=== PATIENT | female | born 1940 | race Caucasian/White ===

== ENCOUNTER → 2018-01-18 | Outpatient (CLI) | payer MEDICARE, BC ==
[~2018-01-18] VITALS: Ht 182.9 cm; Wt 90.7 kg
[~2018-01-18] MED LIST: ADENOSINE 76 MG in GIVE UN-DILUTED 0 ML IV ONE; ADENOSINE 90 MG/30 ML INJ IV ONE
== END | disposition home or self-care (01) ==
LOC: Rad HDHVI 13:20
PROVIDERS: ATTEND Internal Medicine Cardiovascular Disease
DX: I20.0 Unstable angina (principal); J18.9 Pneumonia, unspecified organism; I10 Essential (primary) hypertension
CPT/HCPCS: 78452; 93005; 96374; 96375; A9500; J0153

== ENCOUNTER → 2020-01-18 | Outpatient (CLI) | payer MEDICARE, BC | END | disposition home or self-care (01) | LOC: Rad HDHVI 12:51 | PROVIDERS: ATTEND Internal Medicine Cardiovascular Disease | DX: I11.9 Hypertensive heart disease without heart failure (principal); I50.33 Acute on chronic diastolic (congestive) heart failure; J44.9 Chronic obstructive pulmonary disease, unspecified | CPT/HCPCS: 93306 ==

== ENCOUNTER → 2020-02-04 | Outpatient (CLI) | payer MEDICARE, BC ==
[~2020-02-04] VITALS: Ht 182.9 cm; Wt 90.7 kg
== END | disposition home or self-care (01) ==
LOC: Rad HDHVI 13:26
PROVIDERS: ATTEND Internal Medicine Cardiovascular Disease
DX: J90 Pleural effusion, not elsewhere classified (principal); R06.02 Shortness of breath; I70.0 Atherosclerosis of aorta
CPT/HCPCS: 78452; 93005; 96374; 96375; A9500; J0153

== ENCOUNTER → 2021-04-14 | Outpatient (CLI) | payer MEDICARE, BC | END | disposition home or self-care (01) | LOC: Rad HDHVI 11:07 | PROVIDERS: ATTEND Internal Medicine Cardiovascular Disease | DX: I10 Essential (primary) hypertension (principal); E78.5 Hyperlipidemia, unspecified | CPT/HCPCS: 93306 ==

== ENCOUNTER → 2021-04-24 | Outpatient (CLI) | payer MEDICARE, BC | END | disposition home or self-care (01) | LOC: Rad HDHVI 10:03 | PROVIDERS: ATTEND Internal Medicine Cardiovascular Disease | DX: I65.23 Occlusion and stenosis of bilateral carotid arteries (principal); I10 Essential (primary) hypertension; E78.5 Hyperlipidemia, unspecified | CPT/HCPCS: 93880 ==

== ENCOUNTER 2021-06-22 09:05 | Day surgery (SDC) | payer MEDICARE, BC ==
[~2021-06-22] VITALS: Ht 182.9 cm; Wt 77.1 kg
[2021-06-22] MEDS ORDERED: LIDOCAINE 2%HCL (LOCAL ANESTH.) INJ 20ML MDV ONE (12:39)
[2021-06-22] MEDS ORDERED: IODIXANOL 320MG/ML 100ML BTL IV ONE ×3 (12:39→15:05)
[2021-06-22] MEDS ORDERED: fentaNYL CITRATE 100 MCG/2 ML VL ONE (12:46)
[2021-06-22] MEDS ORDERED: MIDAZOLAM HCL 2MG/2ML 2ml VIAL (1mg/ml) ONE (12:46)
[2021-06-22] MEDS ORDERED: HEPARIN SODIUM (PORCINE) 5000 UNITS/ML 1ML VIAL ONE (13:33)
[2021-06-22] MEDS ORDERED: PROTAMINE SULFATE 10 MG/ML 5ML VIAL IV ONE (14:10)
== END 2021-06-22 17:40 | disposition home or self-care (01) ==
LOC: CATH 09:05
PROVIDERS: ATTEND Radiology Diagnostic Radiology
DX: M25.122 Fistula, left elbow (principal); Z20.822 Contact with and (suspected) exposure to COVID-19
CPT/HCPCS: 36415; 36905; 76942; 87426; C1725; C1769; C1894; J1644; J2250; J2720; J3010; J7040; J7050; Q9967; 36904; 99152; 99153

== ENCOUNTER 2021-10-14 16:43 | Inpatient (IN) | payer MEDICARE, BC ==
[~2021-10-14] VITALS: Ht 182.9 cm; Wt 86.6 kg
[2021-10-14 18:25] LABS: Basophils # (auto) 0.1 10 ^3/uL (0-0.2); Eosinophils # (auto) 0.2 10 ^3/uL (0-0.8); Hematocrit 31.8 % (36.0-46.0); Hemoglobin 10.6 g/dL (12.2-16.2); Lymphocytes # (auto) 1.3 10 ^3/uL (0.4-5.4); Lymphocytes % (auto) 14.7 % (10.0-50.0); Mean Corpuscular Hemoglobin 31.2 pg (28.0-32.0); Mean Corpuscular Hgb Conc. 33.5 g/dL (32.0-36.0); Mean Corpuscular Volume 93.2 fL (80.0-100.0); Monocytes # (auto) 0.7 10 ^3/uL (0-1.3); Monocytes % (auto) 8.4 % (0.0-12.0); Neutrophils # (auto) 6.5 10 ^3/uL (1.6-8.6); Neutrophils % (auto) 73.9 % (37.0-80.0); Nucleated Red Blood Cells % 0.2 %; Red Blood Cells 3.41 10^6/uL (4.0-5.20); Red Cell Distribution Width 14.8 % (11.8-14.3); White Blood Cell 8.8 10^3/uL (4.4-10.8)
[2021-10-14 18:47] LABS: INR 1.06 (0.9-1.15); Partial Thromboplastin Time 21.7 sec (23.6-33.0)
[2021-10-14 18:48] LABS: Alanine Aminotransferase 35 U/L (13-56); Albumin 3.4 g/dL (3.4-5.0); Anion Gap 11 (5-15); Aspartate Aminotransferase 63 U/L (15-37); BUN/Creatinine Ratio 17.3; Blood Urea Nitrogen 66 mg/dL (7-18); Carbon Dioxide 21 mmol/L (21-32); Chloride 110 mmol/L (98-107); GFR African American 15 mL/min; GFR Non-African American 12 mL/min; Glucose 145 mg/dL (74-106); Potassium 4.7 mmol/L (3.5-5.1); Sodium 142 mmol/L (136-145)
[2021-10-14 18:51] LABS: Alkaline Phosphatase 55 U/L (45-117); Bilirubin, Total 0.7 mg/dL (0.2-1.0); Total Protein 7.3 g/dL (6.4-8.2)
[2021-10-14] MEDS ORDERED: MORPHINE SULFATE 4 MG/ML SYR/VIAL IV ONE (20:00)
[2021-10-14] MEDS ORDERED: ONDANSETRON HCL 4 MG/2 ML VIAL IV ONE (20:00)
[2021-10-14] MEDS: SODIUM CHLORIDE 0.9% 1,000 ML IV SCH (22:27)
[2021-10-14 22:46] LABS: Urine Bacteria FEW /hpf (None Seen); Urine Blood Negative /uL (Negative); Urine Specific Gravity 1.013 (1.001-1.035); Urine WBC 10 /hpf (0 - 5)
[2021-10-14 23:42] VITALS: BP 133/55
[2021-10-15 05:00] VITALS: BP 155/67
[2021-10-15 06:34] LABS: Basophils # (auto) 0 10 ^3/uL (0-0.2); Basophils % (auto) 0.5 % (0.0-2.0); Eosinophils # (auto) 0.3 10 ^3/uL (0-0.8); Eosinophils % (auto) 3.7 % (0.0-7.0); Hematocrit 29.4 % (36.0-46.0); Lymphocytes # (auto) 1.4 10 ^3/uL (0.4-5.4); Lymphocytes % (auto) 18.3 % (10.0-50.0); Mean Corpuscular Hemoglobin 32.8 pg (28.0-32.0); Mean Corpuscular Hgb Conc. 33.9 g/dL (32.0-36.0); Mean Corpuscular Volume 96.9 fL (80.0-100.0); Monocytes # (auto) 0.9 10 ^3/uL (0-1.3); Monocytes % (auto) 11.5 % (0.0-12.0); Neutrophils # (auto) 4.9 10 ^3/uL (1.6-8.6); Nucleated Red Blood Cells % 0.1 %; Red Blood Cells 3.03 10^6/uL (4.0-5.20); Red Cell Distribution Width 15.3 % (11.8-14.3); White Blood Cell 7.5 10^3/uL (4.4-10.8)
[2021-10-15 06:44] LABS: BUN/Creatinine Ratio 18.9; Calcium 8.8 mg/dL (8.5-10.1); Potassium 4.6 mmol/L (3.5-5.1)
[2021-10-15 09:00] VITALS: BP 146/66
[2021-10-15] MEDS ORDERED: cefTRIAXone 1GM/50ML D5W 50 ML IV SCH (09:00)
[2021-10-15] MEDS: ONDANSETRON HCL 4 MG/2 ML VIAL IV PRN ×2 (10:38→19:02)
[2021-10-15] MEDS: SODIUM CHLORIDE 0.9% 1,000 ML IV SCH ×2 (10:38→22:08)
[2021-10-15] MEDS: MORPHINE SULFATE INJECTION 2 MG/ML SYRG IV PRN ×2 (10:45→19:03)
[2021-10-15] MEDS ORDERED: hydrALAZINE HCL 20 MG/ML VL IV PRN (11:15)
[2021-10-15] MEDS ORDERED: ceFAZolin 1GM/50ML 100 ML IV ONE (11:28)
[2021-10-15] MEDS ORDERED: TETRACAINE 1% INJ 2 ML VIAL IJ ONE (11:40)
[2021-10-15] MEDS ORDERED: MIDAZOLAM HCL 2MG/2ML 2ml VIAL (1mg/ml) ONE (11:42)
[2021-10-15] MEDS ORDERED: fentaNYL CITRATE 100 MCG/2 ML VL ONE (11:42)
[2021-10-15] MEDS ORDERED: BUPIVACAINE 0.25% INJ 50ML VIAL ONE (12:25)
[2021-10-15] MEDS ORDERED: ONDANSETRON HCL 4 MG/2 ML VIAL ONE (12:55)
[2021-10-15] MEDS ORDERED: PROPOFOL 10 MG/ML 20 ML IV ONE (12:55)
[2021-10-15] MEDS ORDERED: ONDANSETRON HCL 4 MG/2 ML VIAL IV PRN (13:00)
[2021-10-15] MEDS ORDERED: HYDROmorphone HCL 2 MG/ML VL IV PRN (13:00)
[2021-10-15] MEDS ORDERED: ceFAZolin 2 GM in D5W 5% 100 ML IV SCH (14:00)
[2021-10-15 17:00] VITALS: BP 147/73
[2021-10-15] MEDS: ceFAZolin 2 GM in D5W 5% 100 ML IV SCH (18:50)
[2021-10-15 22:00] VITALS: BP 124/57
[2021-10-15] MEDS: HYDROcodone-ACET 5/325MG TAB PO PRN (22:08)
[2021-10-16] MEDS: ceFAZolin 2 GM in D5W 5% 100 ML IV SCH ×2 (02:53→12:12)
[2021-10-16 04:37] VITALS: BP 122/41
[2021-10-16 06:47] LABS: Basophils # (auto) 0.1 10 ^3/uL (0-0.2); Basophils % (auto) 0.7 % (0.0-2.0); Eosinophils # (auto) 0.3 10 ^3/uL (0-0.8); Eosinophils % (auto) 4.1 % (0.0-7.0); Hematocrit 25.1 % (36.0-46.0); Hemoglobin 8.3 g/dL (12.2-16.2); Lymphocytes % (auto) 14.4 % (10.0-50.0); Mean Corpuscular Hemoglobin 31.2 pg (28.0-32.0); Mean Corpuscular Hgb Conc. 33.2 g/dL (32.0-36.0); Mean Corpuscular Volume 93.7 fL (80.0-100.0); Monocytes # (auto) 0.8 10 ^3/uL (0-1.3); Monocytes % (auto) 10.7 % (0.0-12.0); Neutrophils # (auto) 5.1 10 ^3/uL (1.6-8.6); Neutrophils % (auto) 70.1 % (37.0-80.0); Nucleated Red Blood Cells % 0.2 %; Red Blood Cells 2.68 10^6/uL (4.0-5.20); Red Cell Distribution Width 15.1 % (11.8-14.3); White Blood Cell 7.2 10^3/uL (4.4-10.8)
[2021-10-16 08:00] VITALS: BP 118/40
[2021-10-16 09:00] VITALS: BP 118/40
[2021-10-16 09:50] LABS: Calcium 8.6 mg/dL (8.5-10.1); Potassium 4.3 mmol/L (3.5-5.1)
[2021-10-16] MEDS: HYDROcodone-ACET 5/325MG TAB PO PRN ×3 (10:14→23:07)
[2021-10-16 13:00] VITALS: BP 142/47
[2021-10-16 17:00] VITALS: BP 141/47
[2021-10-16 21:26] VITALS: BP 121/51
[2021-10-17] MEDS: MORPHINE SULFATE INJECTION 2 MG/ML SYRG IV PRN ×2 (04:14→22:30)
[2021-10-17 08:00] VITALS: BP 155/70
[2021-10-17 08:37] VITALS: BP 155/70
[2021-10-17] MEDS ORDERED: HYDR-4902 PO (09:31)
[2021-10-17] MEDS ORDERED: LEVO500T31 PO (09:31)
[2021-10-17] MEDS ORDERED: RIVA10TA PO (09:31)
[2021-10-17 13:00] VITALS: BP 131/45
[2021-10-17] MEDS: HYDROcodone-ACET 5/325MG TAB PO PRN (14:05)
[2021-10-17] MEDS ORDERED: SODIUM FERR GLUC 62.5MG/5ML 125 MG in SODIUM CHL 0.9% 100 ML IV ONE (15:00)
[2021-10-17] MEDS ORDERED: EPOETIN ALFA-EPBX 10,000 UNIT/1ML VIAL SC ONE (15:00)
[2021-10-17 16:37] VITALS: BP 140/62
[2021-10-17 22:00] VITALS: BP 159/57
[2021-10-18] VITALS (8 sets, daily range): BP systolic 125–155; BP diastolic 49–82
[2021-10-18] MEDS: HYDROcodone-ACET 5/325MG TAB PO PRN ×2 (10:57→22:53)
[2021-10-19 05:00] VITALS: BP 139/76
[2021-10-19 08:20] VITALS: BP 140/69
[2021-10-19 09:00] VITALS: BP 150/74
[2021-10-19 13:00] VITALS: BP 140/69
[2021-10-19 16:37] LABS: Basophils # (auto) 0.1 10 ^3/uL (0-0.2); Basophils % (auto) 0.5 % (0.0-2.0); Eosinophils # (auto) 0.1 10 ^3/uL (0-0.8); Eosinophils % (auto) 1.3 % (0.0-7.0); Hematocrit 28.8 % (36.0-46.0); Hemoglobin 9.7 g/dL (12.2-16.2); Lymphocytes # (auto) 1.3 10 ^3/uL (0.4-5.4); Lymphocytes % (auto) 14.3 % (10.0-50.0); Mean Corpuscular Hemoglobin 31.3 pg (28.0-32.0); Mean Corpuscular Hgb Conc. 33.7 g/dL (32.0-36.0); Mean Corpuscular Volume 92.8 fL (80.0-100.0); Monocytes # (auto) 0.7 10 ^3/uL (0-1.3); Monocytes % (auto) 8.1 % (0.0-12.0); Neutrophils % (auto) 75.8 % (37.0-80.0); Nucleated Red Blood Cells % 0.1 %; Red Cell Distribution Width 15.3 % (11.8-14.3); White Blood Cell 9.2 10^3/uL (4.4-10.8)
[2021-10-19 16:51] LABS: Albumin 2.7 g/dL (3.4-5.0); Calcium 8.7 mg/dL (8.5-10.1); Potassium 4.4 mmol/L (3.5-5.1)
[2021-10-19 16:56] LABS: Bilirubin, Total 0.6 mg/dL (0.2-1.0); Total Protein 6.5 g/dL (6.4-8.2)
[2021-10-19 17:04] VITALS: BP 146/66
[2021-10-19 17:05] LABS: BUN/Creatinine Ratio 18.1
[2021-10-19 17:28] VITALS: BP 146/66
== END 2021-10-19 19:19 | DRG 492 ==
LOC: ER 16:43 → OVERFLOW 20:56 → CENTRAL 23:00
PROVIDERS: ADMIT Nurse Practitioner; ATTEND Internal Medicine
PROC: BQ1H1ZZ Fluoroscopy of Left Ankle using Low Osmolar Contrast (ICD-10-PCS; 2021-10-15)
PROC: 0QSH04Z Reposition Left Tibia with Internal Fixation Device, Open Approach (ICD-10-PCS; principal; 2021-10-15 11:48)
DX: S82.852A Displaced trimalleolar fracture of left lower leg, initial encounter for closed fracture (principal); N18.6 End stage renal disease; N17.9 Acute kidney failure, unspecified; N39.0 Urinary tract infection, site not specified; I12.0 Hypertensive chronic kidney disease with stage 5 chronic kidney disease or end stage renal disease; W18.39XA Other fall on same level, initial encounter; D63.8 Anemia in other chronic diseases classified elsewhere; E78.5 Hyperlipidemia, unspecified; Z85.3 Personal history of malignant neoplasm of breast; Z99.2 Dependence on renal dialysis; Z82.49 Family history of ischemic heart disease and other diseases of the circulatory system; Z87.891 Personal history of nicotine dependence; Z88.8 Allergy status to other drugs, medicaments and biological substances; Y93.89 Activity, other specified; Y92.098 Other place in other non-institutional residence as the place of occurrence of the external cause; Y99.8 Other external cause status
CPT/HCPCS: 36415; 71045; 73700; 76000; 76775; 80048; 80053; 81001; 85025; 85610; 85730; 93005; 96365; 96375; 97110; 97116; 97163; 97530; G0378; J0690; J0696; J2250; J2405; J2704; J3490; J7060

== ENCOUNTER → 2022-01-27 | Outpatient (CLI) | payer MEDICARE, BC ==
[~2022-01-27] MED LIST changes: -ADENOSINE 76 MG in GIVE UN-DILUTED 0 ML IV ONE; -ADENOSINE 90 MG/30 ML INJ IV ONE; +HYDR-4902 PO; +LEVO500T31 PO; +RIVA10TA PO
== END | disposition home or self-care (01) ==
LOC: Rad HDHVI 09:34
PROVIDERS: ATTEND Internal Medicine Cardiovascular Disease
DX: I70.202 Unspecified atherosclerosis of native arteries of extremities, left leg (principal)
CPT/HCPCS: 93926

== ENCOUNTER → 2022-04-16 | Outpatient (CLI) | payer MEDICARE, BC ==
[~2022-04-16] MED LIST changes: +ALLO100T PO; +CAND16TA PO; +CHOL1CAP50 PO; +CLOP75TA28 PO; +FURO1TAB33 PO; +MULT-733 PO; +NEBI5TAB2 PO; +POM; +PRAV20TA3 PO; +ZOLP10TA PO
[2022-04-16 09:25] VITALS: BP 198/83
[2022-04-16 09:42] VITALS: BP 178/79
[2022-04-16 11:00] LABS: Basophils # (auto) 0.1 10 ^3/uL (0-0.2); Basophils % (auto) 0.8 % (0.0-2.0); Eosinophils # (auto) 0.4 10 ^3/uL (0-0.8); Eosinophils % (auto) 4.4 % (0.0-7.0); Hematocrit 37.3 % (36.0-46.0); Hemoglobin 11.7 g/dL (12.2-16.2); Lymphocytes % (auto) 24.9 % (10.0-50.0); Mean Corpuscular Hemoglobin 30.8 pg (28.0-32.0); Mean Corpuscular Hgb Conc. 31.3 g/dL (32.0-36.0); Mean Corpuscular Volume 98.5 fL (80.0-100.0); Monocytes # (auto) 0.8 10 ^3/uL (0-1.3); Monocytes % (auto) 9.4 % (0.0-12.0); Neutrophils % (auto) 60.5 % (37.0-80.0); Nucleated Red Blood Cells % 0.1 %; Red Blood Cells 3.79 10^6/uL (4.0-5.20); White Blood Cell 8.2 10^3/uL (4.4-10.8)
[2022-04-16 11:03] LABS: BUN/Creatinine Ratio 23.8; Calcium 8.9 mg/dL (8.5-10.1)
[2022-04-16 11:19] LABS: INR 0.97 (0.9-1.15); Partial Thromboplastin Time 22.5 sec (24.6-33.4)
== END | disposition home or self-care (01) ==
LOC: Rad HDHVI 09:05
PROVIDERS: ATTEND Internal Medicine Cardiovascular Disease
DX: Z01.818 Encounter for other preprocedural examination (principal); R94.31 Abnormal electrocardiogram [ECG] [EKG]; I70.0 Atherosclerosis of aorta; R06.02 Shortness of breath; M47.814 Spondylosis without myelopathy or radiculopathy, thoracic region; I70.213 Atherosclerosis of native arteries of extremities with intermittent claudication, bilateral legs; I10 Essential (primary) hypertension; Z79.01 Long term (current) use of anticoagulants
CPT/HCPCS: 36415; 71046; 80048; 85025; 85610; 85730; 93005; G0463

== ENCOUNTER 2022-04-20 10:58 | Day surgery (SDC) | payer MEDICARE, BC ==
[~2022-04-20] VITALS: Ht 182.9 cm; Wt 77.6 kg
[~2022-04-20 10:58] MED LIST changes: -CLOP75TA28 PO; -HYDR-4902 PO; -LEVO500T31 PO; -RIVA10TA PO
[2022-04-20] MEDS ORDERED: LIDOCAINE 2%HCL (LOCAL ANESTH.) INJ 20ML MDV ONE (13:14)
[2022-04-20] MEDS ORDERED: IOHEXOL 350 MG/ML 100ML IJ ONE (13:14)
[2022-04-20] MEDS ORDERED: SODIUM CHL 0.9% 50 ML ONE (13:16)
[2022-04-20] MEDS ORDERED: fentaNYL CITRATE 100 MCG/2 ML VL ONE (13:16)
[2022-04-20] MEDS ORDERED: ANGIOMAX 250 MG VIAL IV ONE (13:16)
[2022-04-20] MEDS ORDERED: MIDAZOLAM HCL 2MG/2ML 2ml VIAL (1mg/ml) ONE (13:16)
[2022-04-20] MEDS ORDERED: IODIXANOL 320MG/ML 100ML BTL IV ONE (13:21)
[2022-04-20] MEDS ORDERED: NITROGLYCERIN 0.4MG/DOSE SPRAY 4.9GM ONE (13:42)
[2022-04-20] MEDS ORDERED: ASPirin 81 mg TAB ONE (14:10)
[2022-04-20] MEDS ORDERED: CLOPIDOGREL 300 MG TAB ONE (14:10)
[2022-04-20 14:20] VITALS: BP 141/63
[2022-04-20 14:35] VITALS: BP 142/69
[2022-04-20 14:50] VITALS: BP 134/61
[2022-04-20] MEDS ORDERED: CLOP75TA28 PO (14:50)
[2022-04-20 15:05] VITALS: BP 134/64
[2022-04-20 15:35] VITALS: BP 145/62
[2022-04-20 16:05] VITALS: BP 155/67
== END 2022-04-20 16:40 | disposition hospice, home (50) ==
LOC: CATH 10:58
PROVIDERS: ATTEND Internal Medicine Cardiovascular Disease
DX: I70.212 Atherosclerosis of native arteries of extremities with intermittent claudication, left leg (principal); I12.9 Hypertensive chronic kidney disease with stage 1 through stage 4 chronic kidney disease, or unspecified chronic kidney disease; Z85.3 Personal history of malignant neoplasm of breast; Z98.890 Other specified postprocedural states; Z79.899 Other long term (current) drug therapy; Z88.8 Allergy status to other drugs, medicaments and biological substances; E78.5 Hyperlipidemia, unspecified; N18.30 Chronic kidney disease, stage 3 unspecified; Z20.822 Contact with and (suspected) exposure to COVID-19
CPT/HCPCS: 37184; 37185; C1760; C1761; C1769; C1887; C1894; J0583; J1644; J2250; J3010; J7030; Q9967; U0003; 99152; 99153

== ENCOUNTER → 2022-05-31 | Outpatient (CLI) | payer MEDICARE, BC ==
[~2022-05-31] MED LIST changes: +CLOP75TA28 PO
== END | disposition home or self-care (01) ==
LOC: Rad HDHVI 14:21
PROVIDERS: ATTEND Internal Medicine Cardiovascular Disease
DX: I70.202 Unspecified atherosclerosis of native arteries of extremities, left leg (principal); L97.909 Non-pressure chronic ulcer of unspecified part of unspecified lower leg with unspecified severity; R60.9 Edema, unspecified
CPT/HCPCS: 93926

== ENCOUNTER → 2022-08-30 | Outpatient (CLI) | payer MEDICARE, BC | END | disposition home or self-care (01) | LOC: Rad HDHVI 12:02 | PROVIDERS: ATTEND Internal Medicine Cardiovascular Disease | DX: M47.816 Spondylosis without myelopathy or radiculopathy, lumbar region (principal); M25.551 Pain in right hip; M25.552 Pain in left hip; M54.50 Low back pain, unspecified; Z91.81 History of falling | CPT/HCPCS: 72131; 72192 ==

== ENCOUNTER → 2022-12-16 | Outpatient (CLI) | payer MEDICARE, BC | END | disposition home or self-care (01) | LOC: Rad HDHVI 13:02 | PROVIDERS: ATTEND Internal Medicine Cardiovascular Disease | DX: I34.0 Nonrheumatic mitral (valve) insufficiency (principal); I10 Essential (primary) hypertension; R00.2 Palpitations | CPT/HCPCS: 93306 ==

== ENCOUNTER → 2024-10-05 | Outpatient (CLI) | payer MEDICARE, BC ==
[~2024-10-05] MED LIST changes: +NEBI5TAB10 PO; -NEBI5TAB2 PO
== END | disposition home or self-care (01) ==
LOC: Rad HDHVI 13:03
PROVIDERS: ATTEND Internal Medicine Cardiovascular Disease
DX: I34.81 Nonrheumatic mitral (valve) annulus calcification (principal); I11.0 Hypertensive heart disease with heart failure; I50.33 Acute on chronic diastolic (congestive) heart failure
CPT/HCPCS: 93306